=== PATIENT | female | born 2000 | race Two or more races ===

== ENCOUNTER 2024-08-28 10:05 | Inpatient (IN) | payer BC ==
[~2024-08-28] VITALS: Ht 170.2 cm; Wt 77.1 kg
[2024-08-28] MEDS ORDERED: BUTORPHANOL TARTRATE 2 MG/1 ML VIAL IV PRN ×2 (10:15)
[2024-08-28] MEDS ORDERED: LIDOCAINE 2%HCL (LOCAL ANESTH.) INJ 20ML MDV IJ PRN (10:15)
[2024-08-28 11:00] LABS: Eosinophils # (auto) 0 10 ^3/uL (0-0.8); Eosinophils % (auto) 0.3 % (0.0-7.0); Hemoglobin 10.4 g/dL (12.2-16.2); Mean Corpuscular Volume 73.5 fL (80.0-100.0)
[2024-08-28 11:04] LABS: Basophils # (auto) 0 10 ^3/uL (0-0.2); Basophils % (auto) 0.5 % (0.0-2.0); Lymphocytes # (auto) 1.7 10 ^3/uL (0.4-5.4); Lymphocytes % (auto) 18.6 % (10.0-50.0); Mean Corpuscular Hemoglobin 23.9 pg (28.0-32.0); Mean Corpuscular Hgb Conc. 32.5 g/dL (32.0-36.0); Monocytes # (auto) 0.4 10 ^3/uL (0-1.3); Monocytes % (auto) 4.3 % (0.0-12.0); Neutrophils # (auto) 6.8 10 ^3/uL (1.6-8.6); Neutrophils % (auto) 76.3 % (37.0-80.0); Nucleated Red Blood Cells % 0.1 %; Platelet Count (auto) 341 10^3/uL (140-450); Red Blood Cells 4.36 10^6/uL (4.0-5.20); Red Cell Distribution Width 16.2 % (11.8-14.3); White Blood Cell 8.9 10^3/uL (4.4-10.8)
[2024-08-28 11:21] LABS: Alanine Aminotransferase 11 U/L (7-40); Alkaline Phosphatase 231 U/L (46-116); Calcium 9.1 mg/dL (8.7-10.4); Carbon Dioxide 22 mmol/L (20-31); Chloride 107 mmol/L (98-107); Glucose 71 mg/dL (74-106); INR 0.93 (0.9-1.15); Partial Thromboplastin Time 26.4 SEC (24.5-34.5); Potassium 3.7 mmol/L (3.5-5.1); Prothrombin Time 9.9 sec (9.3-11.8); Sodium 137 mmol/L (136-145)
[2024-08-28 11:22] LABS: Anion Gap 8 (5-15); Aspartate Aminotransferase 13 U/L (13-40); BUN/Creatinine Ratio 11.1 (10.0-20.0); Bilirubin, Total 0.3 mg/dL (0.2-1.0); Blood Urea Nitrogen < 5 mg/dL (9-23); Total Protein 7.1 g/dL (5.7-8.2)
[2024-08-28 11:39] LABS: Amphetamine Screen, Urine Neg (NEGATIVE); Benzodiazephine Screen, Urine Neg (NEGATIVE)
[2024-08-28 11:40] LABS: Barbiturate Scree,Urine Neg (NEGATIVE); Cannabinoid Screen, Urine Neg (NEGATIVE); Cocaine Screen, Urine Neg (NEGATIVE); Opiate Scree,Urine Neg (NEGATIVE); Phencyclidine Screen, Urine Neg (NEGATIVE)
[2024-08-28 11:47] LABS: Urine Bacteria FEW /hpf (None Seen); Urine Blood Negative /uL (Negative); Urine Clarity Clear (Clear); Urine Color Light-Yellow (Yellow); Urine Mucus FEW (None Seen); Urine Protein, UAD TRACE (Negative); Urine Specific Gravity 1.019 (1.001-1.035); Urine Urobilinogen Normal (Negative); Urine WBC <1 /hpf (0 - 5); Urine pH 6.5 (5.0-9.0)
[2024-08-28] MEDS: LACTATED RINGER'S 1,000 ML IV SCH (13:43)
[2024-08-28] MEDS ORDERED: LACT. RINGERS/OXYTOCIN 20UNITS 500 ML IV ONE (14:30)
[2024-08-28] MEDS: miSOPROStol 50 MCG per PRE-CUT 1/2 TAB PO PRN (17:00)
[2024-08-29] MEDS ORDERED: ePHEDrine SULFATE 50 MG/ML AMP IV ONE (08:00)
[2024-08-29] MEDS ORDERED: LIDOCAINE HCL 2 %PF INJ 10ML AMP IJ ONE (08:00)
[2024-08-29] MEDS ORDERED: NALOXONE HCL 0.4 MG/ML VIAL IV ONE (08:00)
[2024-08-29] MEDS: LACT. RINGERS/OXYTOCIN 20UNITS 1,000 ML IV SCH (09:34)
[2024-08-29] MEDS: DERMOPLAST 60ML BOTTLE TOP PRN (10:26)
[2024-08-29] MEDS: WITCH HAZEL-GLYCERIN PAD TOP PRN (10:26)
[2024-08-29] MEDS: PHISODERM TOP SOLN 240ML BTL TOP PRN (10:26)
[2024-08-29] MEDS ORDERED: ROPIVACAINE HCL 200 ML ONE (11:03)
[2024-08-29] MEDS: fentaNYL CITRATE 100 MCG/2 ML VL IV ONE (11:29)
[2024-08-29] MEDS ORDERED: diphenhdrAMINE HCL 50 MG/1 ML VL IV PRN (11:45)
[2024-08-29] MEDS ORDERED: METHYLERGONOVINE MALEATE 0.2 MG/ML AMP IM ONE (15:28)
[2024-08-29] MEDS: LACT. RINGERS/OXYTOCIN 20UNITS 500 ML IV ONE (15:32)
[2024-08-29] MEDS: METHYLERGONOVINE MALEATE 0.2 MG/ML AMP IM PRN (15:35)
[2024-08-29] MEDS ORDERED: ONDANSETRON ODT 4 MG TAB PO PRN (18:00)
[2024-08-29] MEDS: IBUPROFEN 600 MG TAB PO PRN (18:36)
[2024-08-29 19:00] VITALS: BP 128/67; PULSE 78; RESP 16; TEMP 98.2; O2SAT 96
[2024-08-29] MEDS: DOCUSATE SOD 100 MG CAP PO SCH (20:00)
[2024-08-29 22:27] VITALS: BP 125/66; PULSE 88; RESP 16; TEMP 98.4; O2SAT 96
[2024-08-29 23:00] VITALS: BP 125/66; PULSE 88; RESP 16; TEMP 98.4; O2SAT 96
[2024-08-30] MEDS: ACETAMINOPHEN 325 MG TAB PO PRN (00:17)
[2024-08-30 03:25] VITALS: BP 123/82; PULSE 80; RESP 14; TEMP 97.8; O2SAT 98
[2024-08-30 07:14] VITALS: BP 127/85; PULSE 85; RESP 16; TEMP 97.7; O2SAT 98
[2024-08-30 10:47] VITALS: BP 125/79; PULSE 88; RESP 18; TEMP 98.6; O2SAT 98
[2024-08-30 15:30] VITALS: BP 128/76; PULSE 80; RESP 18; TEMP 98.3; O2SAT 98
[2024-08-30 16:30] VITALS: BP 128/76; PULSE 70; RESP 16; TEMP 98.3; O2SAT 100
== END 2024-08-30 16:30 | disposition home or self-care (01) | DRG 807 ==
LOC: LDRP 10:05
PROVIDERS: ADMIT Obstetrics & Gynecology; ATTEND Obstetrics & Gynecology
PROC: 3E0R3BZ Introduction of Anesthetic Agent into Spinal Canal, Percutaneous Approach (ICD-10-PCS; 2024-08-29)
PROC: 00HU33Z Insertion of Infusion Device into Spinal Canal, Percutaneous Approach (ICD-10-PCS; 2024-08-29)
PROC: 10E0XZZ Delivery of Products of Conception, External Approach (ICD-10-PCS; principal; 2024-08-30)
DX: O69.81X0 Labor and delivery complicated by cord around neck, without compression, not applicable or unspecified (principal); Z37.0 Single live birth; Z3A.39 39 weeks gestation of pregnancy; Z91.013 Allergy to seafood
CPT/HCPCS: 36415; 59025; 59409; 62282; 80053; 80307; 81001; 81002; 82962; 85025; 85610; 85730; 86592; 86780; 86803; 86850; 86900; 86901; 94760; 96360; 96361; 96366; G0378; J2590